=== PATIENT | male | born 1960 | race Caucasian/White ===

== ENCOUNTER 2018-07-02 13:06 | Emergency (ER) | payer OTHER ==
[~2018-07-02 13:06] MED LIST: ACE500 PO; AMOX500T10 PO; ASPI-1441 PO; CYCL10TA29 PO; INSU100C14 SQ; LANI SUBQ; OXYC-717 PO; OXYC-865 PO; OXYC1TAB54 PO
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
[2018-07-02 14:29] VITALS: BP 148/88
== END 2018-07-02 14:30 | disposition home or self-care (01) ==
LOC: ER 13:11
DX: T33.521A Superficial frostbite of right hand, initial encounter (principal); T33.522A Superficial frostbite of left hand, initial encounter
CPT/HCPCS: 99282